=== PATIENT | male | born 1950 | race Caucasian/White ===

== ENCOUNTER 2017-04-27 20:01 | Emergency (ER) | payer MEDICAID ==
[~2017-04-27] VITALS: Ht 167.6 cm; Wt 73.6 kg
[~2017-04-27 20:01] MED LIST: LISI-167 PO
[2017-04-27 20:15] VITALS: BP 164/88
[2017-04-27] MEDS ORDERED: SODIUM CHLORIDE FLUSH 10ML SYR IVF ONE (20:30)
[2017-04-27] MEDS ORDERED: THIAMINE 100MG TABLET PO ONE (20:30)
[2017-04-27] MEDS ORDERED: SODIUM CHLORIDE 0.9% 1,000ML IVBOLUS ONE (20:30)
[2017-04-27] MEDS ORDERED: FOLIC ACID 1 MG TABLET PO ONE (20:30)
[2017-04-27] MEDS ORDERED: PLEASE ENTER HEIGHT AND WEIGHT MC SCH (20:30)
[2017-04-27 20:34] LABS: BASOPHILS # (AUTO) 0.02 x10^3/uL (0-0.1); BASOPHILS % (AUTO) 0 % (0-1); EOSINOPHILS # (AUTO) 0.04 x10^3/uL (0-0.4); EOSINOPHILS % (AUTO) 1 % (1-7); LYMPHOCYTES # (AUTO) 2.64 x10^3/uL (1-3.4); LYMPHOCYTES % (AUTO) 38 % (22-44); MD NO; MEAN CORPUSCULAR HEMOGLOBIN 32.8 pg (27.5-34.5); MEAN CORPUSCULAR HGB CONC 34.8 g/dL (33.2-36.2); MEAN CORPUSCULAR VOLUME 94.2 fL (81-97); MONOCYTES # (AUTO) 0.41 x10^3/uL (0.2-0.8); MONOCYTES % (AUTO) 6 % (2-9); NEUTROPHILS # (AUTO) 3.81 x10^3/uL (1.8-6.8); NEUTROPHILS % (AUTO) 55 % (42-75); PLATELET COUNT 129 x10^3/uL (130-400); RED BLOOD COUNT 4.93 x10^6/uL (4.38-5.82); RED CELL DISTRIBUTION WIDTH 13.5 % (9.4-14.8)
[2017-04-27] MEDS ORDERED: THIAMINE 100MG TABLET ONE (20:36)
[2017-04-27 20:44] LABS: ALANINE AMINOTRANSFERASE 36 U/L (12-78); ALBUMIN 4.1 g/dL (3.4-5.0); ANION GAP 12 mmol/L (5-15); CALCIUM 8.9 mg/dL (8.5-10.1); CHLORIDE 101 mmol/L (98-107)
[2017-04-27 20:49] LABS: ALKALINE PHOSPHATASE 65 U/L (45-117); BILIRUBIN,TOTAL 0.7 mg/dL (0.2-1.0); TOTAL PROTEIN 7.2 g/dL (6.4-8.2)
== END 2017-04-27 20:51 | disposition left against medical advice (07) ==
LOC: ED 20:45
DX: F10.129 Alcohol abuse with intoxication, unspecified (principal)
CPT/HCPCS: 36415; 80053; 80307; 85025; 99284; G0479

== ENCOUNTER 2017-05-01 18:20 | Emergency (ER) | payer MEDICAID ==
[~2017-05-01] VITALS: Ht 167.6 cm; Wt 75.0 kg
[2017-05-01 18:22] VITALS: BP 154/85
== END 2017-05-01 19:28 | disposition left against medical advice (07) ==
LOC: ED 19:22
DX: F10.120 Alcohol abuse with intoxication, uncomplicated (principal); Z72.89 Other problems related to lifestyle; R73.9 Hyperglycemia, unspecified
CPT/HCPCS: 99283

== ENCOUNTER 2018-10-18 10:07 | Observation (INO) | payer MEDICAID, MEDICARE, OTHER ==
[~2018-10-18] VITALS: Ht 170.2 cm; Wt 77.1 kg
--- NOTE | 2018-10-18 10:15 | NUR ---
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 PT REPORTS THAT HE HAS NOT EATEN OR HAD ANYTHING TO DRINK IN THE PAST 12 HOURS. SITTER FROM [facility] AT BEDSIDE
--- NOTE | 2018-10-18 11:20 | NUR ---
1000 ML NS INITIATED. PT IN REVERSE TRANDELENBERG. 250 NS IN AT THIS TIME BP 99/54
[2018-10-18] MEDS ORDERED: SODIUM CHLORIDE 0.9% 1,000ML IVBOLUS ONE (11:30)
[2018-10-18] MEDS ORDERED: SODIUM CHLORIDE FLUSH 10ML SYR IVF ONE (11:30)
[2018-10-18 11:58] LABS: ALBUMIN 3.2 g/dL (3.4-5.0); ANION GAP 10 mmol/L (5-15); CALCIUM 7.7 mg/dL (8.5-10.1); CHLORIDE 99 mmol/L (98-107)
[2018-10-18 12:02] LABS: ALANINE AMINOTRANSFERASE 93 U/L (12-78); ALKALINE PHOSPHATASE 53 U/L (45-117); BILIRUBIN,TOTAL 0.8 mg/dL (0.2-1.0); CREATININE 1.72 mg/dL (0.7-1.3); TOTAL PROTEIN 5.5 g/dL (6.4-8.2)
[2018-10-18 12:38] LABS: MEAN CORPUSCULAR HGB CONC 33.8 g/dL (33.2-36.2); MEAN CORPUSCULAR VOLUME 97.7 fL (81-97); RED BLOOD COUNT 3.82 x10^6/uL (4.38-5.82); RED CELL DISTRIBUTION WIDTH 12.7 % (9.4-14.8)
[2018-10-18 12:39] LABS: MEAN PLATELET VOLUME 6.8 fL (7.4-10.4); PLATELET COUNT 89 x10^3/uL (130-400)
[2018-10-18 12:41] LABS: MD SCAN
[2018-10-18 12:42] LABS: BASOPHILS # (AUTO) 0.01 x10^3/uL (0-0.1); BASOPHILS % (AUTO) 0 % (0-1); EOSINOPHILS # (AUTO) 0.01 x10^3/uL (0-0.4); EOSINOPHILS % (AUTO) 0 % (1-7); LYMPHOCYTES # (AUTO) 0.68 x10^3/uL (1-3.4); LYMPHOCYTES % (AUTO) 10 % (22-44); MONOCYTES # (AUTO) 0.53 x10^3/uL (0.2-0.8); MONOCYTES % (AUTO) 8 % (2-9); NEUTROPHILS # (AUTO) 5.45 x10^3/uL (1.8-6.8); NEUTROPHILS % (AUTO) 82 % (42-75)
[2018-10-18] MEDS ORDERED: LORazepam 2 MG/ML, 1ML IVPush PRN (14:00)
[2018-10-18] MEDS ORDERED: ONDANSETRON 2MG/ML, 2ML IVPush PRN (14:00)
[2018-10-18] MEDS ORDERED: hydrALAzine 20 MG/ML, 1ML IVPush PRN (14:00)
[2018-10-18 14:02] LABS: INTERNATIONAL NORMALIZED RATIO 0.95 (0.93-1.1)
[2018-10-18 15:00] VITALS: BP 128/63
[2018-10-18 15:02] VITALS: BP 140/73
[2018-10-18 15:05] VITALS: BP 128/73
[2018-10-18] MEDS: SODIUM CHLORIDE 0.9% 1,000 ML IV SCH (16:07)
[2018-10-18 16:37] LABS: MICROSCOPIC NOT IND
[2018-10-18 16:40] LABS: CULTURE INDICATED? NO
[2018-10-18 20:12] VITALS: BP 130/71
[2018-10-18 20:14] VITALS: BP 127/74
[2018-10-18 20:15] VITALS: BP 132/75
[2018-10-18] MEDS ORDERED: TRAZODONE 50MG TABLET PO SCH (21:00)
[2018-10-19] MEDS: SODIUM CHLORIDE 0.9% 1,000 ML IV SCH (00:16)
[2018-10-19 02:43] VITALS: BP 154/84
[2018-10-19 05:06] LABS: MEAN CORPUSCULAR HEMOGLOBIN 34.2 pg (27.5-34.5); MEAN CORPUSCULAR HGB CONC 34.3 g/dL (33.2-36.2); MEAN CORPUSCULAR VOLUME 99.8 fL (81-97); RED BLOOD COUNT 3.96 x10^6/uL (4.38-5.82); RED CELL DISTRIBUTION WIDTH 13.3 % (9.4-14.8)
[2018-10-19 05:50] LABS: BASOPHILS # (AUTO) 0.01 x10^3/uL (0-0.1); BASOPHILS % (AUTO) 0 % (0-1); EOSINOPHILS % (AUTO) 2 % (1-7); LYMPHOCYTES # (AUTO) 1.46 x10^3/uL (1-3.4); LYMPHOCYTES % (AUTO) 28 % (22-44); MD SCAN; MEAN PLATELET VOLUME 7.1 fL (7.4-10.4); MONOCYTES # (AUTO) 0.63 x10^3/uL (0.2-0.8); MONOCYTES % (AUTO) 12 % (2-9); NEUTROPHILS # (AUTO) 3.05 x10^3/uL (1.8-6.8); NEUTROPHILS % (AUTO) 58 % (42-75); PLATELET COUNT 81 x10^3/uL (130-400)
[2018-10-19 07:52] VITALS: BP 133/76
[2018-10-19] MEDS ORDERED: POTASSIUM PHOSPHATE 44 MEQ in SODIUM CHLORIDE 0.9% 500 ML IV ONE ×2 (08:00→10:00)
[2018-10-19 08:04] LABS: ANION GAP 7 mmol/L (5-15); CALCIUM 8.1 mg/dL (8.5-10.1); CHLORIDE 105 mmol/L (98-107); CREATININE 0.92 mg/dL (0.7-1.3)
[2018-10-19] MEDS ORDERED: FOLIC ACID 1 MG TABLET PO SCH (09:00)
[2018-10-19] MEDS ORDERED: MAGNESIUM OXIDE 400 MG TABLET PO SCH (09:00)
[2018-10-19] MEDS ORDERED: THIAMINE 100MG TABLET PO SCH (09:00)
[2018-10-19] MEDS ORDERED: MAGN400T50 PO (11:08)
[2018-10-19] MEDS ORDERED: FOLI-17 PO (11:08)
[2018-10-19] MEDS ORDERED: THIA100T67 PO (11:08)
[2018-10-19] MEDS ORDERED: MULT1TAB60 PO (11:08)
[2018-10-19 13:33] VITALS: BP 151/85
== END 2018-10-19 17:00 ==
LOC: ED 11:20 → EDIP 12:50 → INTOOBSV 12:50 → 4NOR 15:02
PROVIDERS: ADMIT Internal Medicine; ATTEND Internal Medicine
DX: I95.9 Hypotension, unspecified (principal); R42 Dizziness and giddiness; N17.9 Acute kidney failure, unspecified; E87.1 Hypo-osmolality and hyponatremia; K70.10 Alcoholic hepatitis without ascites; F10.239 Alcohol dependence with withdrawal, unspecified; Y90.0 Blood alcohol level of less than 20 mg/100 ml; D69.6 Thrombocytopenia, unspecified; G40.909 Epilepsy, unspecified, not intractable, without status epilepticus; I10 Essential (primary) hypertension; Z91.048 Other nonmedicinal substance allergy status; Z79.899 Other long term (current) drug therapy
CPT/HCPCS: 0399T; 36415; 71045; 80048; 80053; 80074; 80307; 81003; 83735; 84100; 84443; 85025; 85610; 87040; 93005; 93306; 93880; 96361; 96365; 96366; 97161; 97165; 99284; G0378; J7030; J7040